=== PATIENT | female | born 1960 | race African-American/Black ===

== ENCOUNTER 2020-09-16 21:46 | Emergency (ER) | payer BC, OTHER ==
[~2020-09-16] VITALS: Ht 160 cm; Wt 84.8 kg
[2020-09-16 22:20] VITALS: BP 116/58
[2020-09-17 00:03] LABS: Basophils # (auto) 0.1 10 ^3/uL (0-0.2); Basophils % (auto) 1.5 % (0.0-2.0); Eosinophils # (auto) 0.1 10 ^3/uL (0-0.8); Eosinophils % (auto) 1.2 % (0.0-7.0); Hematocrit 36.2 % (36.0-46.0); Hemoglobin 11.8 g/dL (12.2-16.2); Lymphocytes # (auto) 1.7 10 ^3/uL (0.4-5.4); Lymphocytes % (auto) 28.5 % (10.0-50.0); Mean Corpuscular Hemoglobin 26.5 pg (28.0-32.0); Mean Corpuscular Hgb Conc. 32.8 g/dL (32.0-36.0); Monocytes # (auto) 0.3 10 ^3/uL (0-1.3); Monocytes % (auto) 5.4 % (0.0-12.0); Neutrophils # (auto) 3.8 10 ^3/uL (1.6-8.6); Neutrophils % (auto) 63.4 % (37.0-80.0); Nucleated Red Blood Cells % 0.2 %; Platelet Count (auto) 201 10^3/uL (140-450); Red Blood Cells 4.46 10^6/uL (4.0-5.20); Red Cell Distribution Width 17.1 % (11.8-14.3)
[2020-09-17 00:16] LABS: Albumin 3.5 g/dL (3.4-5.0); Calcium 8.5 mg/dL (8.5-10.1); Magnesium 2.1 mg/dL (1.6-2.6); Potassium 3.4 mmol/L (3.5-5.1)
[2020-09-17 00:23] LABS: BUN/Creatinine Ratio 13.1; Bilirubin, Total 1.2 mg/dL (0.2-1.0)
[2020-09-17 00:25] LABS: INR 1.05 (0.9-1.15)
[2020-09-17] MEDS ORDERED: ENOXAPARIN SOD 80 MG/0.8ML SYRINGE SC ONE (01:00)
[2020-09-17] MEDS ORDERED: POTASSIUM CHL 20 Meq TABLET PO ONE (01:30)
[2020-09-17] MEDS ORDERED: FUROSEMIDE 20 MG/2 ML VIAL IV SCH (06:00)
[2020-09-17] MEDS ORDERED: ENOXAPARIN SOD 40 MG/0.4 ML SYRINGE SC SCH (10:00)
[2020-09-17] MEDS ORDERED: FAMOTIDINE (10MG/ML) 2ML VL IV SCH (10:00)
== END 2020-09-17 04:07 | disposition left against medical advice (07) ==
LOC: EDBD 21:53 → ER 21:53
DX: I21.4 Non-ST elevation (NSTEMI) myocardial infarction (principal); R06.02 Shortness of breath; I50.9 Heart failure, unspecified; R77.8 Other specified abnormalities of plasma proteins; E87.6 Hypokalemia; R79.1 Abnormal coagulation profile
CPT/HCPCS: 36415; 71045; 80053; 83735; 83880; 84484; 85025; 85379; 85610; 85730; 93005

== ENCOUNTER 2025-07-23 03:35 | Inpatient (IN) | payer BC, MEDICARE ==
[2025-07-23] VITALS (11 sets, daily range): BP systolic 103–118; BP diastolic 35–82; PULSE 90–115; RESP 13–20; TEMP 97.4–97.7; O2SAT 90–100
[~2025-07-23] VITALS: Ht 167.6 cm; Wt 90.3 kg
--- NOTE | 2025-07-23 04:09 | ECG ---
[facility] Test Date: 2025-07-23 Test Time: 03:44:11 Pat Name: HALINA RODRIGEZ Department: [facility] ED Room: [address] [place] [address] Gender: F Associate Web Developer: ALIYA : 1960 Requested By: LINDA FIERRO Order Number: [id number] Reading MD: Paul Kirk Measurements Intervals [place] Rate: 104 P: 50 AL: 146 QRS: 10 QRSD: 120 T: 144 QT: 369 QTc: 486 Interpretive Statements Sinus tachycardia Probable left atrial enlargement LVH with secondary repolarization abnormality Borderline prolonged QT interval Electronically Signed On 07-25-2025 10:57:03 PST by Paul Kirk Please click the below link to view image of tracing.
[2025-07-23 04:44] LABS: Hematocrit 35.7 % (36.0-46.0); Hemoglobin 11.8 g/dL (12.2-16.2); Mean Corpuscular Hemoglobin 27.3 pg (28.0-32.0); Mean Corpuscular Volume 82.8 fL (80.0-100.0); Nucleated Red Blood Cells % 0.1 %
[2025-07-23 04:59] LABS: Alanine Aminotransferase 12 U/L (7-40); Albumin 4.4 g/dL (3.2-4.8); Alkaline Phosphatase 64 U/L (46-116); Anion Gap 9 (5-15); BUN/Creatinine Ratio 9.8 (10.0-20.0); Bilirubin, Total 0.9 mg/dL (0.2-1.0); Calcium 9.2 mg/dL (8.7-10.4); Carbon Dioxide 23 mmol/L (20-31); Potassium 4.0 mmol/L (3.5-5.1); Sodium 142 mmol/L (136-145); Total Protein 7.2 g/dL (5.7-8.2)
[2025-07-23 05:02] LABS: Blood Urea Nitrogen 9 mg/dL (9-23); Chloride 110 mmol/L (98-107); Glucose 136 mg/dL (74-106)
--- NOTE | 2025-07-23 05:16 | ED.PDOC ---
SOB-HPI HPI Comments HPI: 65-year-old female who came to ER via EMS with shortness of breath. Patient has a history of CHF and PE, used to be on Eliquis but was discontinued, but now currently on aspirin. Patient also used to be on oxygen, but has stopped taking it for the past year since she felt better. For the past week patient has been having shortness of breath, inhaler giving temporary relief. 2 days ago patient started experiencing left-sided chest pains stabbing. Last night, shortness of breath persisted so patient decided to use her oxygen again. Past Medical History: CHF, PE, hypertension, dyslipidemia, sleep apnea Surgical History: Hysterectomy Family History: Denies Personal and Social History: Denies HPI: Poor Historian. Ejection fraction 25% Past Medical History: Past Surgical History: REVIEW OF SYSTEMS: CONSTITUTIONAL: Denies acute: fever, diaphoresis, chills, generalized weakness. HEAD: Denies acute: headache, photophobia Eyes: Denies acute: Double vision, vision loss, eye pain, eye discharge. EARS: Denies acute: tinnitus, hearing loss, ear discharge, ear pain, THROAT: Denies acute: sore throat, swelling, difficulty swallowing , pain with swallowing, change in voice. NECK: Denies acute: neck pain, neck swelling, stiff neck. HEART: Denies acute : palpitations, LUNGS: Denies acute: , wheezing, cough, hemoptysis ABDOMEN: Denies acute: abdominal pain, Nausea, Vomiting, diarrhea, melena , hematemesis, hematochezia SKIN: Denies acute: rash, redness, lesions, itchiness. EXTREMITIES: Denies acute: calf pain, numbness, tingling, weakness, denies pain in extremity. Denies acute: Low back pain. Neuro: Denies acute: focal neurological deficit, motor or sensory focal neurological deficit, tremors, seizure like activity, confusion, dizziness, change in mental status, loss of bowel or bladder function, cauda equina like symptoms. : Denies acute: dysuria, hematuria, flank pain, increase in urinary frequency. PSYCH: Denies acute: hallucination, suicidal ideation, homicidal ideation. FEMALE: Denies acute: abnormal vaginal bleeding, foul odor, unusual discharge. PHYSICAL EXAM: General: -----mod--acute distress, awake and alert. Head: normocephalic, atraumatic. No raccoon's eyes, no tong sign. Neck: supple, trachea is midline, no swelling. Throat: Normal phonation. Eyes:, no erythema, no purulent discharge, no proptosis, no icterus. Heart: regular rate, regular rhythm, no significant murmur appreciated. Lungs: no apparent respiratory distress, Able to speak in full sentences. No wheezing, no rhonchi, no crackles. No stridors Clear to auscultation bilaterally. Abdomen: non tender to palpation, non distended, soft, no guarding, no rebound, + bowel sounds. Neuro: Awake, Alert, oriented to name, self, situation, follows commands GCS=15. Speech is normal. Skin: no petechia, no purpura, no cyanosis, non-pale, not jaundice. Lower extremities: --no - Pitting edema no deformity, no focal swelling, no calf TTP. Makes eye contact. moves all four extremities. Face: no apparent facial droop. ED COURSE: DISCLAIMER: This medical document was created using an electronic medical record system with voice recognition software and computerized dictation system. Although this document has been carefully reviewed, there might still be some phonetic and typographical errors. Occasional wrong-word or "sound-alike" substitutions may have occurred due to the inherent limitations of voice recognition software. These areas are purely typographical due to imperfections of the software programs and do not reflect any compromise in the patient's medical care. Please read the chart carefully and recognize, using context, where these substitutions have occurred. Chief Complaint: Shortness of Breath Time Seen by MD: 05:08 Reviewed notes: Nurses Notes, Allergies Information Source: Patient Mode of Arrival: EMS Past Medical History PAST MEDICAL HISTORY: CHF, High Lipids, HTN, PE Surgical History: Denies all surgeries [employer]ACHIN[employer] History: Denies all [employer] MACHINES Hx Family History Family History: Unknown Social History Smoker: Non-Smoker Alcohol: Denies ETOH Use Drugs: Denies Drug Use EKG EKG : Pulse Rate (adult): 104 Cardiac Rhythm: ST Hypertrophy: LAE Was a procedure done? Was a procedure done?: No Differential Dx Differential Diagnosis: Other (DDx include ACS, unstable angina, anxiety, PE, pneumothroax, neoplasm, cardiac ischemia, COPD, asthma, CHF, pleural effusion, tobacco abuse, pneumonia, hypoxia, hypercapnia, anemia., infection/sepsis., pulmonary edema. Asthma, Cardiac tamponade, infection.) X-Ray, Labs, Meds, VS Vital Signs Date Time Temp Pulse Resp B/P (MAP) Pulse Ox O2 Delivery O2 Flow Rate FiO2 07/23/25 05:26 104 07/23/25 03:48 97.1 103 18 133/88 98 97.1 07/23/25 03:44 104 Lab Test 07/23/25 05:42 07/23/25 04:30 Range/Units Troponin I High Sensitivity Pending 212 *H </=34 ng/L White Blood Count 4.5 4.4-10.8 10^3/uL Red Blood Count 4.30 4.0-5.20 10^6/uL Hemoglobin 11.8 L 12.2-16.2 g/dL Hematocrit 35.7 L 36.0-46.0 % Mean Corpuscular Volume 82.8 80.0-100.0 fL Mean Corpuscular Hemoglobin 27.3 L 28.0-32.0 pg Mean Corpuscular Hemoglobin Concent 33.0 32.0-36.0 g/dL Red Cell Distribution Width 14.6 H 11.8-14.3 % Platelet Count 195 140-450 10^3/uL Mean Platelet Volume 9.3 6.9-10.8 fL Neutrophils (%) (Auto) 65.2 37.0-80.0 % Lymphocytes (%) (Auto) 28.4 10.0-50.0 % Monocytes (%) (Auto) 3.2 0.0-12.0 % Eosinophils (%) (Auto) 2.5 0.0-7.0 % Basophils (%) (Auto) 0.7 0.0-2.0 % Neutrophils # (Auto) 2.9 1.6-8.6 10 ^3/uL Lymphocytes # (Auto) 1.3 0.4-5.4 10 ^3/uL Monocytes # (Auto) 0.1 0-1.3 10 ^3/uL Eosinophils # (Auto) 0.1 0-0.8 10 ^3/uL Basophils # (Auto) 0 0-0.2 10 ^3/uL Nucleated Red Blood Cells 0.1 % Sodium Level 142 136-145 mmol/L Potassium Level 4.0 3.5-5.1 mmol/L Chloride Level 110 H 98-107 mmol/L Carbon Dioxide Level 23 20-31 mmol/L Anion Gap 9 5-15 Blood Urea Nitrogen 9 9-23 mg/dL Creatinine 0.92 0.550-1.02 mg/dL Glomerular Filtration Rate Calc 70 >90 mL/min BUN/Creatinine Ratio 9.8 L 10.0-20.0 Serum Glucose 136 H 74-106 mg/dL Calcium Level 9.2 8.7-10.4 mg/dL Total Bilirubin 0.9 0.2-1.0 mg/dL Aspartate Amino Transferase (AST) 16 13-40 U/L Alanine Aminotransferase (ALT) 12 7-40 U/L Alkaline Phosphatase 64 46-116 U/L B-Type Natriuretic Peptide 521.49 0-100 pg/mL Total Protein 7.2 5.7-8.2 g/dL Albumin 4.4 3.2-4.8 g/dL Time of 1ST Reevaluation: 05:25 Reevaluation 1ST: Unchanged Patient Education/Counseling: Diagnosis, Treatment Family Education/Counseling: No Family Present Comments MDM: patient presented with the above HPI.-cardiac----workup was initiated. patient was found with the above mentioned diagnosis. the following medications were ordered: please refer to order lists of meds and tests obtained by myself Dr. Childress. Patient ED course and VS have been stabilized. Patient has been reassessed in the ED and remained in a stable condition. Pertinent incidental findings were discussed with the patient and/or family. Patient/family voices understanding and is agreeable with plan. Patient has been observed in the ED adequate length of time to insure improvement/stability. Escalation of care considered: Consideration of escalation to observation or admission Patient was ADMITTED to the medicine team for further evaluation and treatment of their presentation. All the reports of any imaging studies that were ordered by myself were reviewed by myself. SEPSIS Sepsis Screen Date sepsis recognized/suspect: Jul 23, 2025 Time Sepsis recognized/suspect: 035 Recent Procedure: No On Antibiotic Therapy: No Respiratory Rate >20: No Heart Rate >90: Yes Temp<36 C (96.8 F) or >38.3 C: No SBP <90 or MAP <65 mmHG: No New Acute Mental Status Change: No Is the patient on CPAP, BIPAP,: No Physician Orders Drawbench Operator Helper (07/23/25 ) Chest Portable (07/23/25 04:07) Troponin-I Hs (07/23/25 05:07) Troponin-I Hs (07/23/25 07:07) Electrocardigram (07/23/25 05:07) Electrocardigram (07/23/25 07:07) Vital Signs Date Time Temp Pulse Resp B/P (MAP) Pulse Ox O2 Delivery O2 Flow Rate FiO2 07/23/25 05:26 104 07/23/25 03:48 97.1 103 18 133/88 98 97.1 07/23/25 03:44 104 Laboratory Tests Test 07/23/25 04:30 White Blood Count 4.5 10^3/uL (4.4-10.8) Departure 1 Departure Time of Disposition: 05:17 Impression: Primary Impression: Non-STEMI (non-ST elevated myocardial infarction) Additional Impression: Dyspnea Disposition: ADMITTED INPATIENT Admit to: Tele Condition: Guarded Discharged With: Self Critical Care Note Critical Care Time?: Yes (45 min-critical care time only) Heart Score Heart Score: Heart Score Response (Comments) Value History Moderate Suspicious 1 EKG Repolarization Disturb 1 Age 45-64 1 Risk Factors >3 or Hx ASHD 2 Troponin 1-2 x's Normal limit 1 Total 6 I personally scribed for LINDA CHILDRESS DO ([email or web address]) on 07/23/25 at 05:15. Electronically submitted by Dontae Moore ([employer]). I personally scribed for LINDA CHILDRESS DO ([email or web address]) on 07/23/25 at 05:26. Electronically submitted by Dontae Moore ([employer]). LINDA CHILDRESS DO Jul 23, 2025 05:15
--- NOTE | 2025-07-23 06:30 | DVH ---
CHEST RADIOGRAPH Indication: cp/sob Technique: Single frontal view of the chest was obtained COMPARISON: None FINDINGS: Lines and Tubes: None Lungs: Clear Pleura: No effusion. No pneumothorax. Cardiomediastinal contours: Cardiomegaly. Bones: Unremarkable IMPRESSION: 1. Cardiomegaly.
[2025-07-23] MEDS: NITROGLYCERIN 0.4 MG SL TAB SL ONE (07:11)
[2025-07-23] MEDS: ASPirin-EC 325mg tab PO ONE (07:12)
[2025-07-23] MEDS: FUROSEMIDE 40 MG/4 ML VIAL IV ONE ×2 (07:13→14:00)
[2025-07-23] MEDS ORDERED: ONDANSETRON HCL 4 MG/2 ML VIAL IV PRN (11:00)
[2025-07-23] MEDS ORDERED: NITROGLYCERIN 0.4 MG SL TAB SL PRN (11:00)
[2025-07-23] MEDS ORDERED: ACETAMINOPHEN 325 MG TAB PO PRN (11:00)
[2025-07-23] MEDS ORDERED: MORPHINE SULFATE INJ 2 MG/ml SYRG IV PRN (11:00)
--- NOTE | 2025-07-23 11:14 | DVHHP2 ---
History of Present Illness Reason for Visit: Shortness of breath History of Present Illness Areli Friend is a 65-year-old female with past medical history of CHF, hypertension, PE, hyperlipidemia, and ME in 2017, who came to the hospital for shortness of breath. Patient states she has been experiencing shortness of breath for about 2 weeks. She was seen by her primary care porivder over a week ago and given antibiotics and breathing treatments. Her shortness of breath continued to worsen despite being compliant with her medications. She woke up with severe shortness of breath. Did a breathing treatment with no improvement and called EMS. Cardiovascular: CHF, HTN, hyperipidemia Pulmonary: Pulmonary embolus Past Surgical History: Hysterectomy Smoke: Quit (2017) ALCOHOL: rare Drugs: None Lives: with Family Domestic Violence: Neg Review of Systems Constitutional: No: Fever, Chills, Sweats, Weakness, Malaise, Other Eyes: No: Pain, Vision change, Conjunctivae inflammation, Eyelid inflammation, Other, Redness ENT: No: Ear pain, Ear discharge, Nose pain, Nose discharge, Nose congestion, Mouth pain, Mouth swelling, Throat pain, Throat swelling, Other Respiratory: Cough, Shortness of breath, SOB with excertion, Wheezing, Sputum; No: Dry, Hemoptysis, Pleuritic Pain, Wheezing, Other Cardiovascular: No: Chest Pain, Palpitations, Orthopnea, Paroxysmal Noc. Dyspnea, Edema, Lt Headedness, Other Gastrointestinal: No: Nausea, Vomiting, Abdominal Pain, Diarrhea, Constipation, Melena, Hematochezia, Other Genitourinary: No Dysuria, No Frequency, No Incontinence, No Hematuria, No Retention, No Other Musculoskeletal: No: other, neck pain, shoulder pain, arm pain, back pain, hand pain, leg pain, foot pain Skin: No: Rash, Lesions, Jaundice, Bruising, Other Neurological: No: Weakness, Numbness, Incoordination, Change in speech, Confusion, Seizures, Other Allergies: Coded Allergies: Penicillins (Verified Allergy, Unknown, 07/23/25) Sulfa Antibiotics (Verified Allergy, Unknown, 07/23/25) Exam Vital Signs Vital Signs Date Time Temp Pulse Resp B/P (MAP) Pulse Ox O2 Delivery O2 Flow Rate FiO2 07/23/25 09:11 97.8 96 18 126/60 (82) 100 97.8 07/23/25 07:18 Nasal Cannula* 2 28 General Appearance: Alert, Oriented X3, Cooperative, moderate distress HEENT: Atraumatic, PERRLA Respiratory: Other (Diminshed breath sounds, crackles, wet cough) Abdominal: Normal bowel sounds, Soft, No tenderness, No hepatospenomegaly Extremities: No clubbing, No cyanosis, No edema, Normal pulses, No tenderness/swelling Skin: No rashes, No breakdown, No significant lesion Neuro: Normal gait, Normal speech, Strength at 5/5 X4 ext, Normal tone Psych/Mental Status: Mental status NL, Mood NL Labs/Xrays Labs Test 07/23/25 07:44 07/23/25 04:30 Range/Units Troponin I High Sensitivity 188 *H </=34 ng/L White Blood Count 4.5 4.4-10.8 10^3/uL Red Blood Count 4.30 4.0-5.20 10^6/uL Hemoglobin 11.8 L 12.2-16.2 g/dL Hematocrit 35.7 L 36.0-46.0 % Mean Corpuscular Volume 82.8 80.0-100.0 fL Mean Corpuscular Hemoglobin 27.3 L 28.0-32.0 pg Mean Corpuscular Hemoglobin Concent 33.0 32.0-36.0 g/dL Red Cell Distribution Width 14.6 H 11.8-14.3 % Platelet Count 195 140-450 10^3/uL Mean Platelet Volume 9.3 6.9-10.8 fL Neutrophils (%) (Auto) 65.2 37.0-80.0 % Lymphocytes (%) (Auto) 28.4 10.0-50.0 % Monocytes (%) (Auto) 3.2 0.0-12.0 % Eosinophils (%) (Auto) 2.5 0.0-7.0 % Basophils (%) (Auto) 0.7 0.0-2.0 % Neutrophils # (Auto) 2.9 1.6-8.6 10 ^3/uL Lymphocytes # (Auto) 1.3 0.4-5.4 10 ^3/uL Monocytes # (Auto) 0.1 0-1.3 10 ^3/uL Eosinophils # (Auto) 0.1 0-0.8 10 ^3/uL Basophils # (Auto) 0 0-0.2 10 ^3/uL Nucleated Red Blood Cells 0.1 % Sodium Level 142 136-145 mmol/L Potassium Level 4.0 3.5-5.1 mmol/L Chloride Level 110 H 98-107 mmol/L Carbon Dioxide Level 23 20-31 mmol/L Anion Gap 9 5-15 Blood Urea Nitrogen 9 9-23 mg/dL Creatinine 0.92 0.550-1.02 mg/dL Glomerular Filtration Rate Calc 70 >90 mL/min BUN/Creatinine Ratio 9.8 L 10.0-20.0 Serum Glucose 136 H 74-106 mg/dL Calcium Level 9.2 8.7-10.4 mg/dL Total Bilirubin 0.9 0.2-1.0 mg/dL Aspartate Amino Transferase (AST) 16 13-40 U/L Alanine Aminotransferase (ALT) 12 7-40 U/L Alkaline Phosphatase 64 46-116 U/L B-Type Natriuretic Peptide 521.49 0-100 pg/mL Total Protein 7.2 5.7-8.2 g/dL Albumin 4.4 3.2-4.8 g/dL CHEST RADIOGRAPH FINDINGS: Lines and Tubes: None Lungs: Clear Pleura: No effusion. No pneumothorax. Cardiomediastinal contours: Cardiomegaly. Bones: Unremarkable IMPRESSION: 1. Cardiomegaly. SEPSIS Sepsis Screen Date sepsis recognized/suspect: Jul 23, 2025 Time Sepsis recognized/suspect: 353 Recent Procedure: No On Antibiotic Therapy: No Respiratory Rate >20: No Heart Rate >90: Yes Temp<36 C (96.8 F) or >38.3 C: No SBP <90 or MAP <65 mmHG: No New Acute Mental Status Change: No Is the patient on CPAP, BIPAP,: No Physician Orders Heading And Priming Operator (07/23/25 ) Chest Portable (07/23/25 04:07) Electrocardigram (07/23/25 05:07) Electrocardigram (07/23/25 07:07) Admit (07/23/25 10:59) Code Status (07/23/25 10:59) Hydrocodone-Acet 5/325mg Tab ([place] 5/32 (07/23/25 11:00) Ondansetron Hcl (Zofran) (07/23/25 11:00) Docusate Sodium Capsule (Colace Capsule) (07/23/25 11:00) Complete Blood Count (07/24/25 04:00) Comprehensive Metabolic Panel (07/24/25 04:00) Cardiac Diet-2gna,Lofat,Lochol (07/23/25 Lunch) Echo 2d Mode Cardiac Dop (07/23/25 10:59) Condition: Serious (07/23/25 10:59) Acetaminophen Tablet (Tylenol Tablet) (07/23/25 11:00) Nitroglycerin Sublingual (Ntrostat Subli (07/23/25 11:00) Morphine Sulfate Injection (07/23/25 11:00) Stat Ekg For Chest Pain (07/23/25 10:59) Notify Of Changes From Base (07/23/25 10:59) Baking Powder Mixer For 24 Hours (07/23/25 10:59) Emergency Dysrhythmia Protocol (07/23/25 10:59) Rhythm Strips Once Every Shift (07/23/25 10:59) Oxygen By Nasal Cannula (07/23/25 10:59) * Cardiology Consult (07/23/25 10:59) Vital Signs Date Time Temp Pulse Resp B/P (MAP) Pulse Ox O2 Delivery O2 Flow Rate FiO2 07/23/25 09:11 97.8 96 18 126/60 (82) 100 97.8 07/23/25 07:18 90 20 90 Nasal Cannula* 2 28 07/23/25 07:13 129/79 07/23/25 07:11 129/79 07/23/25 06:59 98.0 96 20 129/79 (96) 90 98.0 07/23/25 05:26 104 07/23/25 03:48 97.1 103 18 133/88 98 97.1 07/23/25 03:44 104 Laboratory Tests Test 07/23/25 04:30 White Blood Count 4.5 10^3/uL (4.4-10.8) Medications Medications Dose Ordered Sig/Jess Route Start Time Stop Time Status Last Admin Dose Admin Aspirin 325 mg ONCE ONCE PO 07/23/25 05:15 07/23/25 05:16 DC 07/23/25 07:12 325 MG Furosemide 40 mg ONCE ONCE IV 07/23/25 05:30 07/23/25 05:31 DC 07/23/25 07:13 40 MG Nitroglycerin 0.4 mg ONCE ONCE SL 07/23/25 05:15 07/23/25 05:16 DC 07/23/25 07:11 0.4 MG Assessment/Plan Assessment/Plan Assessment: Non-STEMI (non-ST elevated myocardial infarction), Acute hypoxic respiratory failure, CHF, Cardiomegaly, Hyperlipidemia, Hypertension, Muscle spasms, Plan: Admit to Tele, Cardiology consult, ECHO, Lipid panel, A1c, TSH, Breathing treatments, IV antibiotics, IV Steroids, Chest pain protocol, Supplemental oxygen as needed, Plan discussed with: Patient My Orders Orders - YOKASTA SANCHEZ Procedure Category Date Status Time Admit ADMIT 07/23/25 Transmitted 10:59 Code Status CODE 07/23/25 Transmitted 10:59 Hydrocodone-Acet PHA 07/23/25 Transmitted 5/325mg Tab ([place] 11:00 Ondansetron Hcl PHA 07/23/25 Transmitted (Zofran) 11:00 Docusate Sodium PHA 07/23/25 Transmitted Capsule (Colace 11:00 Complete Blood Count LAB 07/24/25 Verified 04:00 Comprehensive LAB 07/24/25 Verified Metabolic Panel 04:00 Cardiac DIET 07/23/25 Transmitted Diet-2gna,Lofat,Lochol Lunch Echo 2d Mode Cardiac US 07/23/25 Transmitted DOP 10:59 Condition: Serious GIBRAN 07/23/25 Transmitted 10:59 Acetaminophen Tablet PHA 07/23/25 Transmitted (Tylenol Tablet) 11:00 Nitroglycerin PHA 07/23/25 Transmitted Sublingual (Ntrostat 11:00 Morphine Sulfate PHA 07/23/25 Transmitted Injection 11:00 Stat Ekg For Chest [facility] 07/23/25 Transmitted Pain 10:59 Notify Md Of Changes [facility] 07/23/25 Transmitted From Base 10:59 Baking Powder Mixer For GIBRAN 07/23/25 Transmitted 24 Hours 10:59 Emergency Dysrhythmia GIBRAN 07/23/25 Transmitted Protocol 10:59 Rhythm Strips Once GIBRAN 07/23/25 Transmitted Every Shift 10:59 Oxygen By Nasal RT 07/23/25 Transmitted Cannula 10:59 * Cardiology Consult CONS 07/23/25 Transmitted 10:59 Date of Service: Jul 23, 2025 Billing Provider: YOKASTA SANCHEZ Common Visit Codes: [id number] INP/OBS CARE (HIGH) YOKASTA SANCHEZ Jul 23, 2025 11:14
[2025-07-23] MEDS: ALBUTEROL SULF 2.5 MG/0.5ML(0.5%) NEB SOLN NEB SCH (11:36)
[2025-07-23] MEDS: IPRATROPIUM BROM 0.5 MG/2.5ML INH SOL NEB SCH (11:36)
[2025-07-23] MEDS ORDERED: FURO40TA4 PO (11:59)
[2025-07-23] MEDS ORDERED: ASPI-325 PO (11:59)
[2025-07-23] MEDS ORDERED: ATOR40TA52 PO (11:59)
[2025-07-23] MEDS ORDERED: CARI-579 PO (11:59)
[2025-07-23 13:20] LABS: Triglycerides 128 mg/dL (< 150)
[2025-07-23 13:22] LABS: HDL Cholesterol 59 mg/dL (40-59)
[2025-07-23 13:57] LABS: Cholesterol 280 mg/dL (< 200)
[2025-07-23] MEDS: AZITHROMYCIN 500MG/ 250ML 250 ML IV ONE (14:00)
[2025-07-23] MEDS: CARISOPRODOL 350 MG TAB PO PRN (17:26)
[2025-07-23] MEDS: methylPREDNISolone SOD SUCC 40 MG/ML VL IV SCH (21:09)
[2025-07-23] MEDS: ATORVASTATIN 20 MG TAB PO SCH (21:09)
[2025-07-24] VITALS (13 sets, daily range): BP systolic 95–123; BP diastolic 49–86; PULSE 84–104; RESP 18–20; TEMP 97.5–98.7; O2SAT 91–100
[2025-07-24 04:44] LABS: Hemoglobin 11.6 g/dL (12.2-16.2)
[2025-07-24 04:48] LABS: Hematocrit 35.3 % (36.0-46.0); Mean Corpuscular Hemoglobin 27.3 pg (28.0-32.0); Mean Corpuscular Volume 82.9 fL (80.0-100.0); Nucleated Red Blood Cells % 0.1 %
[2025-07-24 04:59] LABS: Alanine Aminotransferase 11 U/L (7-40); Albumin 4.1 g/dL (3.2-4.8); Alkaline Phosphatase 61 U/L (46-116); Anion Gap 4 (5-15); BUN/Creatinine Ratio 12.5 (10.0-20.0); Bilirubin, Total 0.8 mg/dL (0.2-1.0); Blood Urea Nitrogen 12 mg/dL (9-23); Calcium 9.2 mg/dL (8.7-10.4); Carbon Dioxide 26 mmol/L (20-31); Potassium 4.4 mmol/L (3.5-5.1); Sodium 143 mmol/L (136-145); Total Protein 6.8 g/dL (5.7-8.2)
[2025-07-24 06:16] LABS: Chloride 113 mmol/L (98-107); Glucose 179 mg/dL (74-106)
[2025-07-24] MEDS: FUROSEMIDE 40 MG/4 ML VIAL IV SCH (09:06)
[2025-07-24] MEDS: ASPirin-EC 81 mg tab PO SCH (09:06)
[2025-07-24] MEDS ORDERED: FUROSEMIDE 40 MG TAB PO SCH (10:00)
[2025-07-24] MEDS: AZITHROMYCIN 500MG/ 250ML 250 ML IV SCH (10:24)
--- NOTE | 2025-07-24 10:43 | DVHPNRES ---
Progress Note Date Seen: Jul 24, 2025 Resident Creating Document: YUDI EUBANKS RESIDENT Subjective Review of Systems patient seen bedside still on 2L NC, baseline. improved subjective shortness of breath. Patient reports: No new complaints, Feels better Changes from previous H/P or p: No Changes Objective vital signs Vital Sign Date Time Temp Pulse Resp B/P (MAP) Pulse Ox O2 Delivery O2 Flow Rate FiO2 07/24/25 10:00 95 Nasal Cannula* 2 28 07/24/25 09:06 98/62 07/24/25 08:53 97.7 91 18 97.7 Total Intake and Output 07/23/25 07/23/25 07/24/25 15:00 23:00 07:00 Intake Total 105 ml 800 ml Balance 105 ml 800 ml medications Current Medications Medications Dose Ordered Sig/Jess Route Start Time Stop Time Status Last Admin Dose Admin Acetaminophen/ Hydrocodone Bitart 1 tab Q4HP PRN PO 07/23/25 11:00 Ondansetron HCl 4 mg Q4HP PRN IV 07/23/25 11:00 Docusate Sodium 100 mg BIDPRN PRN PO 07/23/25 11:00 Acetaminophen 650 mg Q6HP PRN PO 07/23/25 11:00 Nitroglycerin 0.4 mg Q5MINP PRN SL 07/23/25 11:00 Morphine Sulfate 2 mg Q30M PRN IV 07/23/25 11:00 Albuterol 2.5 mg Q6HWA NEB 07/23/25 12:00 07/24/25 07:52 2.5 MG Ipratropium Mather 0.5 mg Q6HWA [facility] 07/23/25 12:00 07/24/25 07:52 0.5 MG Aspirin 81 mg DAILY PO 07/24/25 10:00 07/24/25 09:06 81 MG Carisoprodol 350 mg TID PRN PO 07/23/25 12:00 07/23/25 17:26 350 MG Atorvastatin Calcium 40 mg HS PO 07/23/25 22:00 07/23/25 21:09 40 MG Methylprednisolone Sodium Succinate 40 mg BID IV 07/23/25 22:00 07/24/25 09:06 40 MG Ceftriaxone Sodium 50 ml @ 100 mls/hr DAILY@09 IV 07/24/25 09:00 07/24/25 09:07 100 MLS/HR Azithromycin 250 ml @ 125 mls/hr DAILY IV 07/24/25 10:00 07/24/25 10:24 125 MLS/HR Furosemide 40 mg DAILY IV 07/24/25 10:00 07/24/25 09:06 40 MG Examination: GENERAL:Normal, HEENT:Normal (jvp elevated. ), NECK:Normal, LUNGS:Abnormal (b/l crackles, rales +ve 2L nc ), CVS:Abnormal (jvp elevated. no significant pitting edema noted. b/l legs), ABDOMEN:Normal, MSK:Normal, SKIN:Normal, NEURO:Normal laboratory and microbiology Laboratory Tests 07/24/25 03:28 Test 07/24/25 03:28 Range/Units Serum Glucose 179 H 74-106 mg/dL Labs and/or images reviewed: Labs reviewed by me, Image(s) reviewed by me Problem List/Assessment/Plan Problem List/Assessment/Plan Ms. Friend, a 65-year-old female with a complex cardiac history including prior smoking, COPD, HFrEF, ischemic cardiomyopathy, CAD (2021 coronary angiogram showing chronic total occlusion of mid RCA and mild LCX disease), prior GA, CVA, VIPUL noncompliance on CPAP, chronic hypoxia on 2L NC RTC, and resolved PE (no longer on anticoagulation) presents with progressive shortness of breath. She reports adherence to diuretics but has previously discontinued other cardiac medications. She has not seen a wool hat hydraulicker in approximately a year after switching providers and missing a scheduled appointment. On ED presentation, she was found to have cardiomegaly on CXR, elevated BNP (521), and mildly elevated troponins trending down (212 ? 195 ? 188). EKG showed sinus tachycardia (HR 104) with LVH but no acute ST-T changes. She denies active chest pain or palpitations. Assessment and Plan: #Possible community-acquired pneumonia gram Positive, Atypical: Continue IV antibiotics, azithromycin and ceftriaxone, check MRSA , check for QT see, if prolonged change to doxycycline. #Possible COPD exacerbation: treatment in progress, likely underlying CAP, methylprednisolone IV changed to oral prednisone 40 mg daily x 5 more days. #Known COPD: at home formoterol and ipratropium bromide with albuterol rescue inhaler, in hospital treatment to continue #Acute on chronic CHF: iv lasix to continue for one more day, CHF bundle. #Known HFrEF, (25% EF): New echo LVEF 20%, Home GDM T spironolactone 25 mg daily, and oral Lasix 40 mg daily compliance questionable, hypothyroidism ruled out moderately elevated 521 of BNP , patient might get a benefits from AICD versus LifeVest. continue iv lasix 40 daily for now. check Mg, ivabradine added. #CAD with known GA in 2016, 2021 showing FUR MIXER mid RCA mild 40% LCX disease #type 2 Non-STEMI, denies active chest pain: Cardiology on board, appreciate input. likely due to underlying stress due to hypotension: With known underlying CAD, continue telemetry, aspirin atorvastatin to continue. previous wool hat hydraulicker Dr. Kenney #Ischemic cardiomyopathy with known HFrEF 20-25% ejection fraction: NYHA III oxygen dependent, given lower blood pressure, less room for GDMT> #Mild Hypotensive: MAP to keep over 65, 98/62 this morning, patient asymptomatic, UA unremarkable, CXR unremarkable for CRP, check lactate, trend if high-risk for cardiogenic shock , close follow up with the Cardiology, underlying infection could be contributing. #Acute on Chronic hypoxic respiratory failure: back to 2 L nasal cannula oxygen, baseline, At home patient has oxygen concentrated, round the clock 2 L of nasal cannula oxygen, target SpO2 around 92% given known COPD case. Wean oxygen as tolerated, ruled out COVID influenza. #Normocytic anemia, H&H stable: am labs 11.8, Check for iron panel: if ferritin less than 100, IV iron infusion we will helping HFrEF as per IRONMAN trial. #Well-controlled diabetic, HbA1c 6.7: target blood glucose in-hospital 140-180 with SSI #Dyslipidemia: with TG 128, cholesterol 280, LDL 196, continue atorvastatin 40 mg daily #Cardiomegaly likely LVH due to prior hypertensive heart disease: LVH with IVCD and secondary repolarization abnormality #Moderate-sized hiatal hernia, GERD: Noted previously in EGD, continue Protonix, patient has symptoms, lifestyle modification, outpatient follow up with the GI as needed. #Previous surgical history of hysterectomy, healthy scars noted: abdomen examination unremarkable. #Constipation: as needed docusate. #Prior history of smoking, 20+ pack-year smoking history #Prior history of DVT/PE: presented with tachycardia hypoxia, renal function acceptable, completed previous anticoagulation. clinically #Chronic back pain, Muscle spasms: well controlled and ambulatory at baseline. continue home medications. #Likely CKD stage 2: Avoid nephrotoxins, gentle oral hydration, daily BNP #Obesity grade 1: BMI 31.5, high-risk for progression of HFpEF, weight loss counseling done. #Known history of VIPUL: patient did not tolerate home CPAP, Continue CPAP at night if tolerated. #Poor medication compliance /poor medical adherence #Borderline Prolonged QTC ~480: MG> 2, K>2, telemetry, changed azithromycin to doxycycline, avoid other QTC prolonging drugs. #Grade 1 obesity BMI 31.5 PUD prophylaxis: protonix 40mg DVT prophylaxis: lovenox Barriers to discharge: Medical diagnosis and management in progress. Patient lives with brother/ family. Independent for ADL. At discharge will need oxygen to transport. PCP: Patient has a established PCP at [facility], patient is adamant to change the PCP. High-risk of readmission, I will advise for discharge Clinic follow up. Close follow up needed outpatient for advanced heart failure with Cardiology. Specialist Relevant To Admission: Cardiology. Case discussed with Dr Alejo Code Status: Full Code. Discussion needed total 27 minutes bedside. Plan discussed with: Patient, Other (primary team. ) My Orders My Orders Orders - YUDI EUBANKS RESIDENT Procedure Category Date Status Time Stool Occult Blood LAB 07/24/25 Logged 10:31 Iron Panel LAB 07/24/25 In Process 10:31 Ferritin LAB 07/24/25 In Process 10:31 Covid19 Antigen Dayanna LAB 07/24/25 Logged Rapid Influenza A&B LAB 07/24/25 Logged 10:31 Respiratory Culture LUIS 07/24/25 Logged W/ Gs 10:31 Mrsa Screen LUIS 07/24/25 Logged 10:31 Urinalysis LAB 07/24/25 Logged 10:31 Enoxaparin Sodium PHA 07/25/25 Logged (Lovenox) 10:00 Enoxaparin Sodium PHA 07/24/25 In Process (Lovenox) 10:45 Pantoprazole PHA 07/25/25 In Process (Protonix) 10:00 Pantoprazole PHA 07/24/25 In Process (Protonix) 10:45 Pt Request For Service PT 07/24/25 Logged 10:31 Date of Service: Jul 24, 2025 Billing Provider: MUSA ALEJO MD Common Visit Codes: [id number] INP/OBS CARE(HIGH) Secondary Visit Codes: [id number] CARE PLAN 30 MINUTES YUDI EUBANKS Jul 24, 2025 10:43 MUSA ALEJO MD Jul 24, 2025 15:44
[2025-07-24 11:08] LABS: Total Iron Binding Capacity 280.0 ug/dL (250-425)
[2025-07-24 11:10] LABS: Iron 35.0 ug/dL (50-170)
[2025-07-24] MEDS: PANTOPRAZOLE 40 MG/10 ML VIAL INJ IV ONE (12:04)
[2025-07-24] MEDS: ENOXAPARIN SOD 40 MG/0.4 ML SYRINGE SC ONE (12:05)
[2025-07-24 12:11] LABS: Urine Protein, UAD Negative (Negative)
[2025-07-24 12:59] LABS: COVID19 ANTIGEN SOFIA FIA NEGATIVE (NEGATIVE)
--- NOTE | 2025-07-24 13:32 | DVHSR ---
APPROVED REPORT EXAM: Two-dimensional and M-mode echocardiogram with Doppler and color Doppler. Blood Pressure: 96/60 mmHg INDICATION NSTEMI RISK FACTORS Height: 5'6", Weight: 195 DIMENSIONS LVDd 7.0 (3.8-5.7cm) LA (2D) 4.9 (1.9-4.0cm) Aortic Root 3.4 (2.0-3.7cm) LVDs 6.8 (2.5-4.0cm) LA (MM) (1.9-4.0cm) Aortic Cusp Exc 1.6 (1.5-2.0cm) EF (%) 10.0 (55-70%) Rt. Atrium 4.3 (1.9-4.0cm) Asc. Aorta cm IVSd 1.3 (0.7-1.1cm) RV (D) (1.8-2.4cm) PWd 1.2 (0.7-1.1cm) Mitral Valve Mitral Mitral Stenosis E wave 1.34m/s MV Mean GR. mmHg A wave 1.32m/s MV Peak GR. mmHg E/A ratio 1.0 2D MVA cm2 DECEL Time 138ms PRESS 1/2 Time ms Aortic Valve Aortic Valve Aortic Stenosis V1 0.83m/s AO Mean GR. 3mmHg V2 1.35m/s AO Peak GR. 7mmHg LVOT Diameter 2.0 (1.8-2.4cm) Doppler HIRAM 1.93cm2 Pulmonic Valve V2 0.86m/s Tricuspid Valve TR Velocity 2.63m/s RVSP 31mmHg Conclusion LVH LVE JUHI LAE EF <20% SPONTANEOUS CONTRAST SEEN , RISK FOR EMBOLIC EVENT
--- NOTE | 2025-07-24 13:58 | DVHINCON2 ---
Date Seen: Jul 24, 2025 Referring Physician Zaida Reason for Consultation CHF, Positive troponins History of Present Illness 65-year-old female with PMH for HFrEF, cardiomyopathy, CAD with coronary angio in 2021 showing ENGINE LATHE TENDER mid RCA mild 40% LCX disease, PE no longer on anticoagulation therapy, DC, CVA presents to the hospital with worsening shortness of breath. Patient states she has been compliant with the diuretic though has stopped all her heart medication in the past. Previously Following up with Dr. 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 Patient states she had an appointment coming up though missed the appointment by mistake. Upon presentation in the ER patient found to have CXR showing cardiomegaly, mildly elevated troponins trending 212, 195, 188. BNP 521. Denies chest pain, palpitations. EKG reviewed and shows sinus tachycardia at 104 beats per minute, LVH. No acute ST and T-wave abnormality. Past Medical History As stated above Past Surgical History As stated above Family History: Cerebrovascular accident (CVA) G8 MOTHER, Onset:50's - 60 G8 FATHER, Onset:40's - 50 Social History Denies alcohol tobacco or illicit drug use Allergies: Coded Allergies: Penicillins (Verified Allergy, Unknown, 07/23/25) Sulfa Antibiotics (Verified Allergy, Unknown, 07/23/25) Home Meds Reported Medications Aspirin (Aspirin Low Dose) 81 Mg Tab, 1 TAB PO DAILY 07/23/25 Furosemide (Furosemide) 40 Mg Tab, 1 TAB PO DAILY 07/23/25 Atorvastatin Calcium (ATORVASTATIN CALCIUM) 40 Mg Tab, 40 MG PO HS 07/23/25 Carisoprodol (Carisoprodol) 350 Mg Tab, 1 TAB PO TID PRN 07/23/25 Current Medications Current Medications Medications (Trade) Dose Ordered Sig/Jess Route PRN Reason Start Time Stop Time Status Last Admin Aspirin (Ecotrin Enteric Coated Tablet) 81 mg DAILY PO 07/24/25 10:00 07/24/25 09:06 Furosemide (Lasix Tablet) 40 mg DAILY PO 07/24/25 10:00 07/23/25 14:02 DC Atorvastatin Calcium (Lipitor) 40 mg HS PO 07/23/25 22:00 07/23/25 21:09 Methylprednisolone Sodium Succinate (Solu Medrol) 40 mg BID IV 07/23/25 22:00 07/24/25 09:06 Ceftriaxone Sodium 50 ml @ 100 mls/hr DAILY@09 IV 07/24/25 09:00 07/24/25 09:07 Azithromycin 250 ml @ 125 mls/hr DAILY IV 07/24/25 10:00 07/24/25 10:24 Furosemide (Lasix Injection) 40 mg DAILY IV 07/24/25 10:00 07/24/25 09:06 Enoxaparin Sodium (Lovenox) 40 mg DAILY SC 07/25/25 10:00 Pantoprazole Sodium (Protonix) 40 mg DAILY IV 07/25/25 10:00 Review of Systems Constitutional: No: Fever, Chills, Sweats, Weakness, Malaise, Other Eyes: No: Pain, Vision change, Conjunctivae inflammation, Eyelid inflammation, Other, Redness ENT: No: Ear pain, Ear discharge, Nose pain, Nose discharge, Nose congestion, Mouth pain, Mouth swelling, Throat pain, Throat swelling, Other Respiratory: No: Cough, Dry, Shortness of breath, SOB with exertion, Wheezing, Hemoptysis, Pleuritic Pain, Sputum, Wheezing, Other Cardiovascular: ; No: Chest Pain Palpitations, Orthopnea, Paroxysmal Noc. Dyspnea, mild Edema, Lt Headedness, Other Gastrointestinal: No: Nausea, Vomiting, Abdominal Pain, Diarrhea, Constipation, Melena, Hematochezia, Other Genitourinary: No Dysuria, No Frequency, No Incontinence, No Hematuria, No Rete ntion, No Other Musculoskeletal: neck pain; No: other, shoulder pain, arm pain, back pain, hand pain, leg pain, foot pain Skin: No: Rash, Lesions, Jaundice, Bruising, Other Neurological: Other (Dizziness, headache.); No: Weakness, Numbness, Incoordination, Change in speech, Confusion, Seizures Vital Signs Vital Signs Date Time Temp Pulse Resp B/P (MAP) Pulse Ox O2 Delivery O2 Flow Rate FiO2 07/24/25 12:30 97.9 93 18 97/49 (65) 96 97.9 07/24/25 10:00 Nasal Cannula* 2 28 Physical Exam General appearance: Patient is well-developed, well-nourished, in no acute distress. HEENT: Exam shows: Normocephalic, atraumatic, PERRLA, EOMI Neck: Supple, no bruits Chest: Equal chest excursion bilaterally. Breath sounds normal-no rales or wheezes. Heart: Rhythm: Regular rate; no murmur or gallop Abdomen: Exam shows: Soft, nontender, nondistended Musculoskeletal: No clubbing, no cyanosis, no lower extremity edema Dermatology: Skin warm, moist. Neurological: Exam shows: Alert and oriented x4, normal speech Available prior records, labs, EKG, rhythm strips reviewed and interpreted Labs/Diagnostic Data Labs Test 07/24/25 11:51 07/24/25 11:30 07/24/25 03:28 07/23/25 14:11 Range/Units Influenza Type A Antigen Negative Negative Influenza Type B Antigen Negative Negative SARS-CoV-2 Antigen (Rapid) Negative NEGATIVE Urine Color Colorless Yellow Urine Clarity Clear Clear Urine pH 5.0 5.0-9.0 Urine Specific [place] 1.006 1.001-1.035 Urine Protein Negative Negative Urine Ketones Negative Negative Urine Blood Negative Negative /uL Urine Nitrite Negative Negative Urine Bilirubin Negative Negative Urine Urobilinogen Normal Negative mg/dL Urine Leukocyte Esterase Negative Negative /uL Urine RBC None seen 0 - 4 /hpf Urine Microscopic WBC 0-5 /HPF Urine Squamous Epithelial Cells Few <5 /hpf Urine Bacteria None seen None Seen /hpf Urine Glucose 3+ H Normal mg/dL White Blood Count 5.0 4.4-10.8 10^3/uL Red Blood Count 4.26 4.0-5.20 10^6/uL Hemoglobin 11.6 L 12.2-16.2 g/dL Hematocrit 35.3 L 36.0-46.0 % Mean Corpuscular Volume 82.9 80.0-100.0 fL Mean Corpuscular Hemoglobin 27.3 L 28.0-32.0 pg Mean Corpuscular Hemoglobin Concent 33.0 32.0-36.0 g/dL Red Cell Distribution Width 14.9 H 11.8-14.3 % Platelet Count 190 140-450 10^3/uL Mean Platelet Volume 9.8 6.9-10.8 fL Neutrophils (%) (Auto) 89.8 H 37.0-80.0 % Lymphocytes (%) (Auto) 9.0 L 10.0-50.0 % Monocytes (%) (Auto) 0.9 0.0-12.0 % Eosinophils (%) (Auto) 0.1 0.0-7.0 % Basophils (%) (Auto) 0.2 0.0-2.0 % Neutrophils # (Auto) 4.5 1.6-8.6 10 ^3/uL Lymphocytes # (Auto) 0.4 0.4-5.4 10 ^3/uL Monocytes # (Auto) 0 0-1.3 10 ^3/uL Eosinophils # (Auto) 0 0-0.8 10 ^3/uL Basophils # (Auto) 0 0-0.2 10 ^3/uL Nucleated Red Blood Cells 0.1 % Sodium Level 143 136-145 mmol/L Potassium Level 4.4 3.5-5.1 mmol/L Chloride Level 113 H 98-107 mmol/L Carbon Dioxide Level 26 20-31 mmol/L Anion Gap 4 L 5-15 Blood Urea Nitrogen 12 9-23 mg/dL Creatinine 0.96 0.550-1.02 mg/dL Glomerular Filtration Rate Calc 66 >90 mL/min BUN/Creatinine Ratio 12.5 10.0-20.0 Serum Glucose 179 H 74-106 mg/dL Calcium Level 9.2 8.7-10.4 mg/dL Iron Level 35 L 50-170 ug/dL Total Iron Binding Capacity 280 250-425 ug/dL Percent Iron Saturation 12.5 L 15-50 % Ferritin 83.1 10-291 ng/mL Total Bilirubin 0.8 0.2-1.0 mg/dL Aspartate Amino Transferase (AST) 18 13-40 U/L Alanine Aminotransferase (ALT) 11 7-40 U/L Alkaline Phosphatase 61 46-116 U/L Total Protein 6.8 5.7-8.2 g/dL Albumin 4.1 3.2-4.8 g/dL Hemoglobin A1c 6.7 H <5.7 % A1C Test 07/23/25 07:44 07/23/25 04:30 Range/Units Troponin I High Sensitivity 188 *H </=34 ng/L Triglycerides Level 128 < 150 mg/dL Cholesterol Level 280 H < 200 mg/dL LDL Cholesterol 196 H < 100 mg/dL HDL Cholesterol 59 40-59 mg/dL Thyroid Stimulating Hormone (TSH) 2.11 0.55-4.78 uIU/mL B-Type Natriuretic Peptide 521.49 0-100 pg/mL Assessment * NSTEMI type 2 - patient with known CAD. Continue aspirin and statin. Denies chest pain. No acute ST and T-wave abnormalities on EKG. * Acute on chronic HFrEF - continue diuresis 40 mg Lasix IV daily. Aldactone 12.5 mg p.o. daily recommended if BP tolerates.. * Cardiomyopathy - unable to tolerate GDMT due to labile blood pressures. We will start Ivabradine 2.5 twice daily. Follow up echo showing EF 20% spontaneous contrast seen on exam indicating risk for embolic event. Patient will benefit from low-dose anticoagulation therapy, we will start on Eliquis 2.5 mg p.o. twice daily. Recommend close outpatient cardiology follow up for possible AICD. * CAD - continue on low-dose Eliquis and statin on DC. * Acute hypoxic respiratory failure , suspected pneumonia- on IV antibiotics. Management per primary team. Case Discussed with Dr Soto. Given noncompliant with medication and outpatient follow up. Continue medical management at this time. EF 20% with spontaneous contrast seen, we will started on low-dose Eliquis 2.5 mg twice daily due to risk for embolic event. Strongly advised outpatient cardiology follow up. Critical care, time spent: 40 minutes This medical document was created using an electronic medical record system with voice recognition software and computerized dictation system. Although this document has been carefully reviewed, there might still be some phonetic and typographical errors. Occasional wrong-word or ``sound-alike substitutions may have occurred due to the inherent limitations of voice recognition software. These areas are purely typographical due to imperfections of the software programs and do not reflect any compromise in the patient's medical care. Please read the chart carefully and recognize, using context, where these substitutions have occurred. Thank you for allowing me to participate in the management of this patient. The treatment plan was discussed with and agreed upon by patient/family including requesting consultants and ordering of imaging/procedures. Plan discussed with: Patient NYHA Physical activity limitations: Class3(Marked) ordinary Date of Service: Jul 24, 2025 Billing Provider: FAVIO CERON Cardiology Common Codes: [id number] INP/OBS CARE (High), [id number] CARE 30-74 MIN FAVIO CERON Jul 24, 2025 13:58
[2025-07-24] MEDS: DOXYCYCLINE 100MG/100ML 100 ML IV SCH (16:15)
[2025-07-24] MEDS: DOCUSATE SOD 100 MG CAP PO PRN (16:17)
[2025-07-24] MEDS: IRON SUCROSE COMPLEX 110 ML IV SCH (18:44)
[2025-07-24] MEDS: HYDROcodone-ACET 5/325MG TAB PO PRN (18:55)
[2025-07-24 19:10] LABS: Lactic Acid w/Reflex 3.0 mmol/L (0.4-2.0)
[2025-07-24] MEDS: SODIUM CHLORIDE 0.9% 250 ML IV ONE (20:26)
[2025-07-24] MEDS: FUROSEMIDE 40 MG/4 ML VIAL IV ONE (20:30)
[2025-07-24] MEDS: IVABRADINE 5 MG TAB PO SCH (22:12)
[2025-07-25] VITALS (12 sets, daily range): BP systolic 90–105; BP diastolic 50–67; PULSE 83–104; RESP 14–18; TEMP 97.1–98.3; O2SAT 93–99
[2025-07-25] MEDS: PANTOPRAZOLE 40 MG/10 ML VIAL INJ IV SCH (09:19)
[2025-07-25] MEDS: predniSONE 20 MG TAB PO SCH (09:22)
[2025-07-25] MEDS: ENOXAPARIN SOD 40 MG/0.4 ML SYRINGE SC SCH (09:22)
--- NOTE | 2025-07-25 13:44 | DVHPN2 ---
Progress Note - Dictate Date Seen: Jul 25, 2025 Medical Necessity Reason Pt with a Central, PICC or Fol: No Subjective PT WITH ISCHEMIC CM EF <20% SPONTANEOUS CONTRAST SINCE IN LV ON 2 ED ECHO ANTI COAGULATE ELEVATED TROPONIN C/W SUBENDOCARDIAL INJURY SECONDARY TO HYPOPERFUSION LHC OCCLUDED RCA NO WITH ACUTE DECOMPENSATION OF HFrEF vital signs Vital Sign Date Time Temp Pulse Resp B/P (MAP) Pulse Ox O2 Delivery O2 Flow Rate FiO2 07/25/25 12:53 97.9 89 17 90/50 (63) 97 97.9 07/25/25 06:10 Room Air* 0 21 Total Intake and Output 07/24/25 07/24/25 07/25/25 15:00 23:00 07:00 Intake Total 420 ml 550 ml 900 ml Output Total 500 ml Balance -80 ml 550 ml 900 ml medications Current Medications Medications Dose Ordered Sig/Jess Route Start Time Stop Time Status Last Admin Dose Admin Acetaminophen/ Hydrocodone Bitart 1 tab Q4HP PRN PO 07/23/25 11:00 07/24/25 18:55 1 TAB Ondansetron HCl 4 mg Q4HP PRN IV 07/23/25 11:00 Docusate Sodium 100 mg BIDPRN PRN PO 07/23/25 11:00 07/24/25 16:17 100 MG Acetaminophen 650 mg Q6HP PRN PO 07/23/25 11:00 Nitroglycerin 0.4 mg Q5MINP PRN SL 07/23/25 11:00 Morphine Sulfate 2 mg Q30M PRN IV 07/23/25 11:00 Aspirin 81 mg DAILY PO 07/24/25 10:00 07/25/25 09:22 81 MG Carisoprodol 350 mg TID PRN PO 07/23/25 12:00 07/23/25 17:26 350 MG Atorvastatin Calcium 40 mg HS PO 07/23/25 22:00 07/24/25 21:04 40 MG Ceftriaxone Sodium 50 ml @ 100 mls/hr DAILY@09 IV 07/24/25 09:00 07/25/25 09:19 100 MLS/HR Furosemide 40 mg DAILY IV 07/24/25 10:00 07/25/25 09:21 40 MG Enoxaparin Sodium 40 mg DAILY SC 07/25/25 10:00 07/25/25 09:22 40 MG Pantoprazole Sodium 40 mg DAILY IV 07/25/25 10:00 07/25/25 09:19 40 MG Ivabradine 2.5 mg BID PO 07/24/25 22:00 07/25/25 09:23 2.5 MG Doxycycline Hyclate 100 ml @ 50 mls/hr Q12H IV 07/24/25 16:15 07/25/25 04:24 50 MLS/HR Iron Sucrose 110 ml @ 110 mls/hr DAILY@1200 IV 07/24/25 16:45 07/28/25 12:59 07/25/25 12:12 110 MLS/HR Prednisone 40 mg DAILY PO 07/25/25 10:00 07/25/25 09:22 40 MG laboratory and microbiology Laboratory Tests 07/24/25 03:28 Test 07/24/25 03:28 Range/Units Serum Glucose 179 H 74-106 mg/dL Problem List SCHEMIC CM EF <20% SPONTANEOUS CONTRAST SINCE IN LV ON 2 ED ECHO ANTI COAGULATE ELEVATED TROPONIN C/W SUBENDOCARDIAL INJURY SECONDARY TO HYPOPERFUSION LHC OCCLUDED RCA NO WITH ACUTE DECOMPENSATION OF HFrEF Assessment/Plan DIURESIS CONSIDER CARDIOLITE STRESS OUTPT Plan discussed with: Patient Critical Care Time(min): 35 LIANA MUNGUIA MD Jul 25, 2025 13:44
--- NOTE | 2025-07-25 17:59 | DVHPN2 ---
Reviewed: H&P Changes from previous H/P or p: No Changes General: Per HPI Eyes: No Pain, No Vision change, No Conjunctivae inflammation, No Eyelid inflammation, No Other, No Redness ENT: No Ear pain, No Ear discharge, No Nose pain, No Nose discharge, No Nose congestion, No Mouth pain, No Mouth swelling, No Throat pain, No Throat swelling, No Other Cardiovascular: No Chest Pain, No Palpitations, No Orthopnea, No Paroxysmal Noc. Dyspnea, No Edema, No Lt Headedness, No Other Respiratory: Cough; No Dry; Shortness of breath, SOB with excertion, Wheezing; No Hemoptysis, No Pleuritic Pain; Sputum; No Other Gastrointestinal: No Nausea, No Vomiting, No Abdominal Pain, No Diarrhea, No Constipation, No Melena, No Hematochezia, No Other Genitourinary: No Dysuria, No Frequency, No Incontinence, No Hematuria, No Retention, No Other Musculoskeletal: No other, No neck pain, No shoulder pain, No arm pain, No back pain, No hand pain, No leg pain, No foot pain Skin: No Rash, No Lesions, No Jaundice, No Bruising, No Other Objective Vitals Vital Signs Date Time Temp Pulse Resp B/P (MAP) Pulse Ox O2 Delivery O2 Flow Rate FiO2 07/25/25 17:00 97.1 83 16 98/55 (69) 95 97.1 07/25/25 10:00 Nasal Cannula 2.0 07/25/25 10:00 28 Intake/Output Intake and Output 07/25/25 07:00 Intake Total 1870 ml Output Total 500 ml Balance 1370 ml Intake Oral 1470 ml IV Total 400 ml Output Urine Total 500 ml # Voids 9 Exam GENERAL:Normal, HEENT:Normal (jvp elevated. ), NECK:Normal, LUNGS:Abnormal (b/l crackles, rales +ve 2L nc ), CVS:Abnormal (jvp elevated. no significant pitting edema noted. b/l legs), ABDOMEN:Normal, MSK:Normal, SKIN:Normal, NEURO:Normal Medications Current Medications Medications Dose Ordered Sig/Jess Route Start Time Stop Time Status Last Admin Dose Admin Acetaminophen/ Hydrocodone Bitart 1 tab Q4HP PRN PO 07/23/25 11:00 07/24/25 18:55 1 TAB Ondansetron HCl 4 mg Q4HP PRN IV 07/23/25 11:00 Docusate Sodium 100 mg BIDPRN PRN PO 07/23/25 11:00 07/24/25 16:17 100 MG Acetaminophen 650 mg Q6HP PRN PO 07/23/25 11:00 Nitroglycerin 0.4 mg Q5MINP PRN SL 07/23/25 11:00 Morphine Sulfate 2 mg Q30M PRN IV 07/23/25 11:00 Aspirin 81 mg DAILY PO 07/24/25 10:00 07/25/25 09:22 81 MG Carisoprodol 350 mg TID PRN PO 07/23/25 12:00 07/23/25 17:26 350 MG Atorvastatin Calcium 40 mg HS PO 07/23/25 22:00 07/24/25 21:04 40 MG Ceftriaxone Sodium 50 ml @ 100 mls/hr DAILY@09 IV 07/24/25 09:00 07/25/25 09:19 100 MLS/HR Furosemide 40 mg DAILY IV 07/24/25 10:00 07/25/25 09:21 40 MG Enoxaparin Sodium 40 mg DAILY SC 07/25/25 10:00 07/25/25 09:22 40 MG Pantoprazole Sodium 40 mg DAILY IV 07/25/25 10:00 07/25/25 09:19 40 MG Ivabradine 2.5 mg BID PO 07/24/25 22:00 07/25/25 09:23 2.5 MG Doxycycline Hyclate 100 ml @ 50 mls/hr Q12H IV 07/24/25 16:15 07/25/25 16:06 50 MLS/HR Iron Sucrose 110 ml @ 110 mls/hr DAILY@1200 IV 07/24/25 16:45 07/28/25 12:59 07/25/25 12:12 110 MLS/HR Prednisone 40 mg DAILY PO 07/25/25 10:00 07/25/25 09:22 40 MG Laboratory Results Laboratory Tests 07/24/25 03:28 Chemistry Test 07/25/25 12:05 Magnesium Level 1.9 mg/dL (1.6-2.6) Urinalysis Test 07/24/25 11:30 Urine Color Colorless (Yellow) Urine Clarity Clear (Clear) Urine pH 5.0 (5.0-9.0) Urine Specific [place] 1.006 (1.001-1.035) Urine Protein Negative (Negative) Urine Ketones Negative (Negative) Urine Blood Negative /uL (Negative) Urine Nitrite Negative (Negative) Urine Bilirubin Negative (Negative) Urine Urobilinogen Normal mg/dL (Negative) Urine Leukocyte Esterase Negative /uL (Negative) Urine RBC None seen /hpf (0 - 4) Urine Microscopic WBC /HPF (0-5) Urine Squamous Epithelial Cells Few /hpf (<5) Urine Bacteria None seen /hpf (None Seen) Urine Glucose 3+ mg/dL (Normal) H Microbiology Microbiology Date/Time Source Procedure Growth Status 07/24/25 11:30 Nose MRSA Screen - Final Complete Labs and/or images reviewed: Labs reviewed by me, Image(s) reviewed by me Assessment/Plan Assessment/Plan Ms. Friend, a 65-year-old female with a complex cardiac history including prior smoking, COPD, HFrEF, ischemic cardiomyopathy, CAD (2021 coronary angiogram showing chronic total occlusion of mid RCA and mild LCX disease), prior SD, CVA, VIPUL noncompliance on CPAP, chronic hypoxia on 2L NC RTC, and resolved PE (no longer on anticoagulation) presents with progressive shortness of breath. She reports adherence to diuretics but has previously discontinued other cardiac medications. She has not seen a manual winder in approximately a year after switching providers and missing a scheduled appointment. On ED presentation, she was found to have cardiomegaly on CXR, elevated BNP (521), and mildly elevated troponins trending down (212 ? 195 ? 188). EKG showed sinus tachycardia (HR 104) with LVH but no acute ST-T changes. She denies active chest pain or palpitations. 07/25: Patient's position consistent with pneumonia. Continuing antibiotics ceftriaxone azithromycin. COPD unlikely but possible, looks euvolemic does not lead to leave exacerbation. We will decrease dose for Lasix. Continue steroids and antibiotics. Patient needs to continue with PCP to get referral for manual winder, she got fallen off from follow up from prior manual winder. She has HFrEF. Assessment and Plan: #Possible community-acquired pneumonia gram Positive, Atypical: Continue IV antibiotics, azithromycin and ceftriaxone, check MRSA , check for QT see, if prolonged change to doxycycline. #Possible COPD exacerbation: treatment in progress, likely underlying CAP, methylprednisolone IV changed to oral prednisone 40 mg daily x 5 more days. #Known COPD: at home formoterol and ipratropium bromide with albuterol rescue inhaler, in hospital treatment to continue #Acute on chronic CHF: iv lasix to continue for one more day, CHF bundle. #Known HFrEF, (25% EF): New echo LVEF 20%, Home GDM T spironolactone 25 mg daily, and oral Lasix 40 mg daily compliance questionable, hypothyroidism ruled out moderately elevated 521 of BNP , patient might get a benefits from AICD versus LifeVest. continue iv lasix 40 daily for now. check Mg, ivabradine added. 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 likely due to underlying stress due to hypotension: With known underlying CAD, continue telemetry, aspirin atorvastatin to continue. previous manual winder Dr. Kenney #Ischemic cardiomyopathy with known HFrEF 20-25% ejection fraction: NYHA III oxygen dependent, given lower blood pressure, less room for GDMT> #Mild Hypotensive: MAP to keep over 65, 98/62 this morning, patient asymptomatic, UA unremarkable, CXR unremarkable for CRP, check lactate, trend if high-risk for cardiogenic shock , close follow up with the Cardiology, underlying infection could be contributing. #Acute on Chronic hypoxic respiratory failure: back to 2 L nasal cannula oxygen, baseline, At home patient has oxygen concentrated, round the clock 2 L of nasal cannula oxygen, target SpO2 around 92% given known COPD case. Wean oxygen as tolerated, ruled out COVID influenza. #Normocytic anemia, H&H stable: am labs 11.8, Check for iron panel: if ferritin less than 100, IV iron infusion we will helping HFrEF as per IRONMAN trial. #Well-controlled diabetic, HbA1c 6.7: target blood glucose in-hospital 140-180 with SSI #Dyslipidemia: with TG 128, cholesterol 280, LDL 196, continue atorvastatin 40 mg daily #Cardiomegaly likely LVH due to prior hypertensive heart disease: LVH with IVCD and secondary repolarization abnormality #Moderate-sized hiatal hernia, GERD: Noted previously in EGD, continue Protonix, patient has symptoms, lifestyle modification, outpatient follow up with the GI as needed. #Previous surgical history of hysterectomy, healthy scars noted: abdomen examination unremarkable. #Constipation: as needed docusate. #Prior history of smoking, 20+ pack-year smoking history #Prior history of DVT/PE: presented with tachycardia hypoxia, renal function acceptable, completed previous anticoagulation. clinically #Chronic back pain, Muscle spasms: well controlled and ambulatory at baseline. continue home medications. #Likely CKD stage 2: Avoid nephrotoxins, gentle oral hydration, daily BNP #Obesity grade 1: BMI 31.5, high-risk for progression of HFpEF, weight loss counseling done. #Known history of VIPUL: patient did not tolerate home CPAP, Continue CPAP at night if tolerated. #Poor medication compliance /poor medical adherence #Borderline Prolonged QTC ~480: MG> 2, K>2, telemetry, changed azithromycin to doxycycline, avoid other QTC prolonging drugs. #Grade 1 obesity BMI 31.5 Tele Full code Plan discussed with: Patient Date of Service: Jul 25, 2025 Billing Provider: TARIQ REYES MD Common Visit Codes: [id number] INP/OBS CARE(HIGH) TARIQ REYES MD Jul 25, 2025 17:59
[2025-07-26] VITALS (9 sets, daily range): BP systolic 101–129; BP diastolic 65–81; PULSE 76–94; RESP 17–18; TEMP 97.6–98.9; O2SAT 92–98
[2025-07-26 08:28] LABS: Hematocrit 38.7 % (36.0-46.0); Hemoglobin 12.5 g/dL (12.2-16.2); Mean Corpuscular Hemoglobin 26.8 pg (28.0-32.0); Mean Corpuscular Volume 82.6 fL (80.0-100.0); Nucleated Red Blood Cells % 0.1 %
[2025-07-26 08:55] LABS: Alkaline Phosphatase 64 U/L (46-116); Anion Gap 13 (5-15); Calcium 9.6 mg/dL (8.7-10.4); Carbon Dioxide 29 mmol/L (20-31); Chloride 102 mmol/L (98-107); Potassium 3.5 mmol/L (3.5-5.1); Sodium 144 mmol/L (136-145)
[2025-07-26 08:57] LABS: BUN/Creatinine Ratio 16.8 (10.0-20.0); Blood Urea Nitrogen 16 mg/dL (9-23); Total Protein 7.4 g/dL (5.7-8.2)
[2025-07-26 08:58] LABS: Albumin 4.5 g/dL (3.2-4.8)
[2025-07-26 08:59] LABS: Bilirubin, Total 0.7 mg/dL (0.2-1.0)
[2025-07-26 09:00] LABS: Alanine Aminotransferase < 9 U/L (7-40); Glucose 114 mg/dL (74-106)
--- NOTE | 2025-07-26 10:06 | DVHPN2 ---
Reviewed: H&P Changes from previous H/P or p: No Changes General: Per HPI Eyes: No Pain, No Vision change, No Conjunctivae inflammation, No Eyelid inflammation, No Other, No Redness ENT: No Ear pain, No Ear discharge, No Nose pain, No Nose discharge, No Nose congestion, No Mouth pain, No Mouth swelling, No Throat pain, No Throat swelling, No Other Cardiovascular: No Chest Pain, No Palpitations, No Orthopnea, No Paroxysmal Noc. Dyspnea, No Edema, No Lt Headedness, No Other Respiratory: Cough; No Dry; Shortness of breath, SOB with excertion, Wheezing; No Hemoptysis, No Pleuritic Pain; Sputum; No Other Gastrointestinal: No Nausea, No Vomiting, No Abdominal Pain, No Diarrhea, No Constipation, No Melena, No Hematochezia, No Other Genitourinary: No Dysuria, No Frequency, No Incontinence, No Hematuria, No Retention, No Other Musculoskeletal: No other, No neck pain, No shoulder pain, No arm pain, No back pain, No hand pain, No leg pain, No foot pain Skin: No Rash, No Lesions, No Jaundice, No Bruising, No Other Objective Vitals Vital Signs Date Time Temp Pulse Resp B/P (MAP) Pulse Ox O2 Delivery O2 Flow Rate FiO2 07/26/25 05:00 97.7 76 17 105/66 (79) 95 97.7 07/25/25 20:00 Nasal Cannula* 2 28 Intake/Output Intake and Output 07/26/25 07:00 Intake Total 1585 ml Balance 1585 ml Intake Oral 1225 ml IV Total 360 ml # Voids 4 Exam GENERAL:Normal, HEENT:Normal (jvp elevated. ), NECK:Normal, LUNGS:Abnormal (b/l crackles, rales +ve 2L nc ), CVS:Abnormal (jvp elevated. no significant pitting edema noted. b/l legs), ABDOMEN:Normal, MSK:Normal, SKIN:Normal, NEURO:Normal Medications Current Medications Medications Dose Ordered Sig/Jess Route Start Time Stop Time Status Last Admin Dose Admin Acetaminophen/ Hydrocodone Bitart 1 tab Q4HP PRN PO 07/23/25 11:00 07/25/25 18:30 1 TAB Ondansetron HCl 4 mg Q4HP PRN IV 07/23/25 11:00 Docusate Sodium 100 mg BIDPRN PRN PO 07/23/25 11:00 07/24/25 16:17 100 MG Acetaminophen 650 mg Q6HP PRN PO 07/23/25 11:00 Nitroglycerin 0.4 mg Q5MINP PRN SL 07/23/25 11:00 Morphine Sulfate 2 mg Q30M PRN IV 07/23/25 11:00 Aspirin 81 mg DAILY PO 07/24/25 10:00 07/25/25 09:22 81 MG Carisoprodol 350 mg TID PRN PO 07/23/25 12:00 07/23/25 17:26 350 MG Atorvastatin Calcium 40 mg HS PO 07/23/25 22:00 07/24/25 21:04 40 MG Ceftriaxone Sodium 50 ml @ 100 mls/hr DAILY@09 IV 07/24/25 09:00 07/25/25 09:19 100 MLS/HR Enoxaparin Sodium 40 mg DAILY SC 07/25/25 10:00 07/25/25 09:22 40 MG Pantoprazole Sodium 40 mg DAILY IV 07/25/25 10:00 07/25/25 09:19 40 MG Ivabradine 2.5 mg BID PO 07/24/25 22:00 07/25/25 09:23 2.5 MG Doxycycline Hyclate 100 ml @ 50 mls/hr Q12H IV 07/24/25 16:15 07/26/25 04:28 50 MLS/HR Iron Sucrose 110 ml @ 110 mls/hr DAILY@1200 IV 07/24/25 16:45 07/28/25 12:59 07/25/25 12:12 110 MLS/HR Prednisone 40 mg DAILY PO 07/25/25 10:00 07/25/25 09:22 40 MG Furosemide 20 mg DAILY IV 07/26/25 10:00 Laboratory Results Laboratory Tests 07/26/25 08:07 Chemistry Test 07/25/25 12:05 07/26/25 08:07 Magnesium Level 1.9 mg/dL (1.6-2.6) Albumin 4.5 g/dL (3.2-4.8) Calcium Level 9.6 mg/dL (8.7-10.4) Total Protein 7.4 g/dL (5.7-8.2) LFT Test 07/26/25 08:07 Alanine Aminotransferase (ALT) < 9 U/L (7-40) Alkaline Phosphatase 64 U/L (46-116) Aspartate Amino Transferase (AST) 13 U/L (13-40) Total Bilirubin 0.7 mg/dL (0.2-1.0) Urinalysis Test 07/24/25 11:30 Urine Color Colorless (Yellow) Urine Clarity Clear (Clear) Urine pH 5.0 (5.0-9.0) Urine Specific [place] 1.006 (1.001-1.035) Urine Protein Negative (Negative) Urine Ketones Negative (Negative) Urine Blood Negative /uL (Negative) Urine Nitrite Negative (Negative) Urine Bilirubin Negative (Negative) Urine Urobilinogen Normal mg/dL (Negative) Urine Leukocyte Esterase Negative /uL (Negative) Urine RBC None seen /hpf (0 - 4) Urine Microscopic WBC /HPF (0-5) Urine Squamous Epithelial Cells Few /hpf (<5) Urine Bacteria None seen /hpf (None Seen) Urine Glucose 3+ mg/dL (Normal) H Microbiology Microbiology Date/Time Source Procedure Growth Status 07/24/25 11:30 Nose MRSA Screen - Final Complete Labs and/or images reviewed: Labs reviewed by me, Image(s) reviewed by me Assessment/Plan Assessment/Plan Ms. Friend, a 65-year-old female with a complex cardiac history including prior smoking, COPD, HFrEF, ischemic cardiomyopathy, CAD (2021 coronary angiogram showing chronic total occlusion of mid RCA and mild LCX disease), prior CA, CVA, VIPUL noncompliance on CPAP, chronic hypoxia on 2L NC RTC, and resolved PE (no longer on anticoagulation) presents with progressive shortness of breath. She reports adherence to diuretics but has previously discontinued other cardiac medications. She has not seen a scrap stripper hand in approximately a year after switching providers and missing a scheduled appointment. On ED presentation, she was found to have cardiomegaly on CXR, elevated BNP (521), and mildly elevated troponins trending down (212 ? 195 ? 188). EKG showed sinus tachycardia (HR 104) with LVH but no acute ST-T changes. She denies active chest pain or palpitations. 07/25: Patient's position consistent with pneumonia. Continuing antibiotics ceftriaxone azithromycin. COPD unlikely but possible, looks euvolemic does not lead to leave exacerbation. We will decrease dose for Lasix. Continue steroids and antibiotics. Patient needs to continue with PCP to get referral for scrap stripper hand, she got fallen off from follow up from prior scrap stripper hand. She has HFrEF. 07/26: Patient keeps insisting that she has blood clots in the lung, no sign for tachycardia or hypoxemia. We will get D-dimer and check lower extremity ultrasound to relief patient's concerns. Continue IV antibiotics for 1 more day for pneumonia. Patient has HFrEF, only on beta-zulema at home with statin, noncompliance is a high concern. She needs to follow up with PCP to set up GDM T appropriately. And needs to follow up with scrap stripper hand. Patient looks euvolemic I have decreased Lasix to 20 IV daily. Assessment and Plan: #Possible community-acquired pneumonia gram Positive, Atypical: Continue IV antibiotics, azithromycin and ceftriaxone, check MRSA , check for QT see, if prolonged change to doxycycline. #Possible COPD exacerbation: treatment in progress, likely underlying CAP, methylprednisolone IV changed to oral prednisone 40 mg daily x 5 more days. #Known COPD: at home formoterol and ipratropium bromide with albuterol rescue inhaler, in hospital treatment to continue #Acute on chronic CHF: iv lasix to continue for one more day, CHF bundle. #Known HFrEF, (25% EF): New echo LVEF 20%, Home GDM T spironolactone 25 mg daily, and oral Lasix 40 mg daily compliance questionable, hypothyroidism ruled out moderately elevated 521 of BNP , patient might get a benefits from AICD versus LifeVest. continue iv lasix 40 daily for now. check Mg, ivabradine added. 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 likely due to underlying stress due to hypotension: With known underlying CAD, continue telemetry, aspirin atorvastatin to continue. previous scrap stripper hand Dr. Kenney #Ischemic cardiomyopathy with known HFrEF 20-25% ejection fraction: NYHA III oxygen dependent, given lower blood pressure, less room for GDMT> #Mild Hypotensive: MAP to keep over 65, 98/62 this morning, patient asymptomatic, UA unremarkable, CXR unremarkable for CRP, check lactate, trend if high-risk for cardiogenic shock , close follow up with the Cardiology, underlying infection could be contributing. #Acute on Chronic hypoxic respiratory failure: back to 2 L nasal cannula oxygen, baseline, At home patient has oxygen concentrated, round the clock 2 L of nasal cannula oxygen, target SpO2 around 92% given known COPD case. Wean oxygen as tolerated, ruled out COVID influenza. #Normocytic anemia, H&H stable: am labs 11.8, Check for iron panel: if ferritin less than 100, IV iron infusion we will helping HFrEF as per IRONMAN trial. #Well-controlled diabetic, HbA1c 6.7: target blood glucose in-hospital 140-180 with SSI #Dyslipidemia: with TG 128, cholesterol 280, LDL 196, continue atorvastatin 40 mg daily #Cardiomegaly likely LVH due to prior hypertensive heart disease: LVH with IVCD and secondary repolarization abnormality #Moderate-sized hiatal hernia, GERD: Noted previously in EGD, continue Protonix, patient has symptoms, lifestyle modification, outpatient follow up with the GI as needed. #Previous surgical history of hysterectomy, healthy scars noted: abdomen examination unremarkable. #Constipation: as needed docusate. #Prior history of smoking, 20+ pack-year smoking history #Prior history of DVT/PE: presented with tachycardia hypoxia, renal function acceptable, completed previous anticoagulation. clinically #Chronic back pain, Muscle spasms: well controlled and ambulatory at baseline. continue home medications. #Likely CKD stage 2: Avoid nephrotoxins, gentle oral hydration, daily BNP #Obesity grade 1: BMI 31.5, high-risk for progression of HFpEF, weight loss counseling done. #Known history of VIPUL: patient did not tolerate home CPAP, Continue CPAP at night if tolerated. #Poor medication compliance /poor medical adherence #Borderline Prolonged QTC ~480: MG> 2, K>2, telemetry, changed azithromycin to doxycycline, avoid other QTC prolonging drugs. #Grade 1 obesity BMI 31.5 Tele Full code Plan discussed with: Patient My Orders Orders - TARIQ REYES MD Procedure Category Date Status Time Furosemide Injection PHA 07/26/25 In Process (Lasix Injection) 10:00 Date of Service: Jul 26, 2025 Billing Provider: TARIQ REYES MD Common Visit Codes: [id number] INP/OBS CARE(HIGH) TARIQ REYES MD Jul 26, 2025 10:06
[2025-07-26] MEDS: FUROSEMIDE 40 MG/4 ML VIAL IV SCH (11:08)
--- NOTE | 2025-07-26 13:11 | DVH ---
Bilateral lower extremity venous duplex Clinical History: R/O DVT Comparison: None Technique: Duplex Doppler evaluation of the deep venous systems of both lower extremities from the common femoral veins to the popliteal veins including color Doppler and spectral/pulsed waveform analysis was performed. Findings: RIGHT SIDE: The common femoral vein demonstrates appropriate compressibility and waveform variability. There is compressibility/patency of the great saphenous vein at the proximal thigh. The femoral vein demonstrates appropriate compressibility and waveform variability. The deep femoral vein demonstrates appropriate compressibility and waveform variability. The popliteal vein demonstrates appropriate compressibility and waveform variability. There is normal compressibility at the tibioperoneal trunk. LEFT SIDE: The common femoral vein demonstrates appropriate compressibility and waveform variability. There is compressibility/patency of the great saphenous vein at the proximal thigh. The femoral vein demonstrates appropriate compressibility and waveform variability. The deep femoral vein demonstrates appropriate compressibility and waveform variability. The popliteal vein demonstrates appropriate compressibility and waveform variability. There is normal compressibility at the tibioperoneal trunk. Impression: No right or left femoropopliteal venous thrombosis.
--- NOTE | 2025-07-26 15:52 | DVHPN2 ---
Progress Note - Dictate Date Seen: Jul 26, 2025 Medical Necessity Reason Pt with a Central, PICC or Fol: No Subjective PT WITH ISCHEMIC CM EF <20% SPONTANEOUS CONTRAST SINCE IN LV ON 2 ED ECHO ANTI COAGULATE ELEVATED TROPONIN C/W SUBENDOCARDIAL INJURY SECONDARY TO HYPOPERFUSION LHC OCCLUDED RCA NO WITH ACUTE DECOMPENSATION OF HFrEF vital signs Vital Sign Date Time Temp Pulse Resp B/P (MAP) Pulse Ox O2 Delivery O2 Flow Rate FiO2 07/26/25 13:00 98.9 94 18 102/65 (77) 98 98.9 07/25/25 20:00 Nasal Cannula* 2 28 Total Intake and Output 07/25/25 07/25/25 07/26/25 15:00 23:00 07:00 Intake Total 160 ml 1050 ml 375 ml Balance 160 ml 1050 ml 375 ml medications Current Medications Medications Dose Ordered Sig/Jess Route Start Time Stop Time Status Last Admin Dose Admin Acetaminophen/ Hydrocodone Bitart 1 tab Q4HP PRN PO 07/23/25 11:00 07/25/25 18:30 1 TAB Ondansetron HCl 4 mg Q4HP PRN IV 07/23/25 11:00 Docusate Sodium 100 mg BIDPRN PRN PO 07/23/25 11:00 07/24/25 16:17 100 MG Acetaminophen 650 mg Q6HP PRN PO 07/23/25 11:00 Nitroglycerin 0.4 mg Q5MINP PRN SL 07/23/25 11:00 Morphine Sulfate 2 mg Q30M PRN IV 07/23/25 11:00 Aspirin 81 mg DAILY PO 07/24/25 10:00 07/26/25 11:09 81 MG Carisoprodol 350 mg TID PRN PO 07/23/25 12:00 07/23/25 17:26 350 MG Atorvastatin Calcium 40 mg HS PO 07/23/25 22:00 07/24/25 21:04 40 MG Ceftriaxone Sodium 50 ml @ 100 mls/hr DAILY@09 IV 07/24/25 09:00 07/26/25 11:07 100 MLS/HR Enoxaparin Sodium 40 mg DAILY SC 07/25/25 10:00 07/26/25 11:07 40 MG Pantoprazole Sodium 40 mg DAILY IV 07/25/25 10:00 07/26/25 11:07 40 MG Ivabradine 2.5 mg BID PO 07/24/25 22:00 07/26/25 11:20 2.5 MG Doxycycline Hyclate 100 ml @ 50 mls/hr Q12H IV 07/24/25 16:15 07/26/25 04:28 50 MLS/HR Iron Sucrose 110 ml @ 110 mls/hr DAILY@1200 IV 07/24/25 16:45 07/28/25 12:59 07/26/25 12:52 110 MLS/HR Prednisone 40 mg DAILY PO 07/25/25 10:00 07/26/25 11:09 40 MG Furosemide 20 mg DAILY IV 07/26/25 10:00 07/26/25 11:08 20 MG laboratory and microbiology Laboratory Tests 07/26/25 08:07 Test 07/26/25 08:07 Range/Units Serum Glucose 114 H 74-106 mg/dL Problem List SCHEMIC CM EF <20% SPONTANEOUS CONTRAST SINCE IN LV ON 2 ED ECHO ANTI COAGULATE ELEVATED TROPONIN C/W SUBENDOCARDIAL INJURY SECONDARY TO HYPOPERFUSION LHC OCCLUDED RCA NO WITH ACUTE DECOMPENSATION OF HFrEF Assessment/Plan DIURESIS CONSIDER CARDIOLITE STRESS OUTPT Plan discussed with: Patient LIANA MUNGUIA MD Jul 26, 2025 15:52
[2025-07-27 01:00] VITALS: BP 103/63; PULSE 89; RESP 18; TEMP 97.8; O2SAT 94
[2025-07-27 05:00] VITALS: BP 105/62; PULSE 81; RESP 18; TEMP 97.6; O2SAT 95
[2025-07-27 09:00] VITALS: BP 127/77; PULSE 82; RESP 18; TEMP 98.2; O2SAT 95
[2025-07-27 10:00] VITALS: O2SAT 95
[2025-07-27] MEDS ORDERED: DOXY100C79 PO (10:06)
--- NOTE | 2025-07-27 10:08 | DVHDS2 ---
Discharge Summary Date of Admission Jul 23, 2025 at 10:59 Date of Discharge: Jul 27, 2025 Labs/Diagnostic Data: Laboratory Results Test 07/26/25 10:45 07/26/25 08:07 07/25/25 12:05 07/24/25 11:51 D-Dimer, Quantitative 1.69 mg/L FEU (0.0-0.49) Lactic Acid Level 1.0 mmol/L (0.4-2.0) White Blood Count 6.5 10^3/uL (4.4-10.8) Red Blood Count 4.68 10^6/uL (4.0-5.20) Hemoglobin 12.5 g/dL (12.2-16.2) Hematocrit 38.7 % (36.0-46.0) Mean Corpuscular Volume 82.6 fL (80.0-100.0) Mean Corpuscular Hemoglobin 26.8 pg (28.0-32.0) Mean Corpuscular Hemoglobin Concent 32.4 g/dL (32.0-36.0) Red Cell Distribution Width 15.2 % (11.8-14.3) Platelet Count 233 10^3/uL (140-450) Mean Platelet Volume 9.4 fL (6.9-10.8) Neutrophils (%) (Auto) 75.5 % (37.0-80.0) Lymphocytes (%) (Auto) 20.1 % (10.0-50.0) Monocytes (%) (Auto) 3.9 % (0.0-12.0) Eosinophils (%) (Auto) 0.3 % (0.0-7.0) Basophils (%) (Auto) 0.2 % (0.0-2.0) Neutrophils # (Auto) 4.9 10 ^3/uL (1.6-8.6) Lymphocytes # (Auto) 1.3 10 ^3/uL (0.4-5.4) Monocytes # (Auto) 0.3 10 ^3/uL (0-1.3) Eosinophils # (Auto) 0 10 ^3/uL (0-0.8) Basophils # (Auto) 0 10 ^3/uL (0-0.2) Nucleated Red Blood Cells 0.1 % Sodium Level 144 mmol/L (136-145) Potassium Level 3.5 mmol/L (3.5-5.1) Chloride Level 102 mmol/L (98-107) Carbon Dioxide Level 29 mmol/L (20-31) Anion Gap 13 (5-15) Blood Urea Nitrogen 16 mg/dL (9-23) Creatinine 0.95 mg/dL (0.550-1.02) Glomerular Filtration Rate Calc 67 mL/min (>90) BUN/Creatinine Ratio 16.8 (10.0-20.0) Serum Glucose 114 mg/dL (74-106) Calcium Level 9.6 mg/dL (8.7-10.4) Total Bilirubin 0.7 mg/dL (0.2-1.0) Aspartate Amino Transferase (AST) 13 U/L (13-40) Alanine Aminotransferase (ALT) < 9 U/L (7-40) Alkaline Phosphatase 64 U/L (46-116) Total Protein 7.4 g/dL (5.7-8.2) Albumin 4.5 g/dL (3.2-4.8) Magnesium Level 1.9 mg/dL (1.6-2.6) Influenza Type A Antigen Negative (Negative) Influenza Type B Antigen Negative (Negative) SARS-CoV-2 Antigen (Rapid) Negative (NEGATIVE) Test 07/24/25 11:30 07/24/25 03:28 07/23/25 14:11 07/23/25 07:44 Urine Color Colorless (Yellow) Urine Clarity Clear (Clear) Urine pH 5.0 (5.0-9.0) Urine Specific [place] 1.006 (1.001-1.035) Urine Protein Negative (Negative) Urine Ketones Negative (Negative) Urine Blood Negative /uL (Negative) Urine Nitrite Negative (Negative) Urine Bilirubin Negative (Negative) Urine Urobilinogen Normal mg/dL (Negative) Urine Leukocyte Esterase Negative /uL (Negative) Urine RBC None seen /hpf (0 - 4) Urine Microscopic WBC /HPF (0-5) Urine Squamous Epithelial Cells Few /hpf (<5) Urine Bacteria None seen /hpf (None Seen) Urine Glucose 3+ mg/dL (Normal) Iron Level 35 ug/dL (50-170) Total Iron Binding Capacity 280 ug/dL (250-425) Percent Iron Saturation 12.5 % (15-50) Ferritin 83.1 ng/mL (10-291) Hemoglobin A1c 6.7 % A1C (<5.7) Troponin I High Sensitivity 188 ng/L (</=34) Triglycerides Level 128 mg/dL (< 150) Cholesterol Level 280 mg/dL (< 200) LDL Cholesterol 196 mg/dL (< 100) HDL Cholesterol 59 mg/dL (40-59) Thyroid Stimulating Hormone (TSH) 2.11 uIU/mL (0.55-4.78) Test 07/23/25 04:30 B-Type Natriuretic Peptide 521.49 pg/mL (0-100) Other Laboratory Tests 07/26/25 08:07 Brief Hx & Hospital Course: Ms. Friend, a 65-year-old female with a complex cardiac history including prior smoking, COPD, HFrEF, ischemic cardiomyopathy, CAD (2021 coronary angiogram showing chronic total occlusion of mid RCA and mild LCX disease), prior OH, CVA, VIPUL noncompliance on CPAP, chronic hypoxia on 2L NC RTC, and resolved PE (no longer on anticoagulation) presents with progressive shortness of breath. She reports adherence to diuretics but has previously discontinued other cardiac medications. She has not seen a sustainability specialist in approximately a year after switching providers and missing a scheduled appointment. On ED presentation, she was found to have cardiomegaly on CXR, elevated BNP (521), and mildly elevated troponins trending down (212 ? 195 ? 188). EKG showed sinus tachycardia (HR 104) with LVH but no acute ST-T changes. She denies active chest pain or palpitations. 07/25: Patient's position consistent with pneumonia. Continuing antibiotics ceftriaxone azithromycin. COPD unlikely but possible, looks euvolemic does not lead to leave exacerbation. We will decrease dose for Lasix. Continue steroids and antibiotics. Patient needs to continue with PCP to get referral for sustainability specialist, she got fallen off from follow up from prior sustainability specialist. She has HFrEF. 07/26: Patient keeps insisting that she has blood clots in the lung, no sign for tachycardia or hypoxemia. We will get D-dimer and check lower extremity ultrasound to relief patient's concerns. Continue IV antibiotics for 1 more day for pneumonia. Patient has HFrEF, only on beta-zulema at home with statin, noncompliance is a high concern. She needs to follow up with PCP to set up GDM T appropriately. And needs to follow up with sustainability specialist. Patient looks euvolemic I have decreased Lasix to 20 IV daily. 07/27: Patient doing well, off of oxygen. Pneumonias improving, can finish treatment of at home. Needs to try to avoid any allergy exposures, i.e. neighbors dogs fecal orders. Discharge diagnosis: Acute hypoxic respiratory failure due to below Community-acquired pneumonia Gram-negative Gram-positive likely COPD exacerbation, ruled out, chronic COPD CHF, not in exacerbation, systolic and diastolic dysfunction HFrEF 25% EF CAD with OH tolerance 17 Type 2 NSTEMI, due to above Ischemic cardiomyopathy Normocytic anemia Diabetic mellitus, type 2, we will controlled A1c 6.7 Dyslipidemia Cardiomegaly, LVH, likely hypertensive heart disease Moderate size hiatal hernia History previous surgical hysterectomy Chronic constipation History of smoking 20+ pack-year History of DVT/PE Chronic back pain CKD stage 2 Obesity grade 1 BMI 31.5 VIPUL, failed CPAP tolerance Poor medication compliance, medication noncompliance Prolonged QTC approximately 480 Plan: -Take doxycycline 100 mg twice daily for next 5 days -Lasix 40 mg as needed for leg swelling -Patient not on GDM T, unknown reasons/side effects, despite HFrEF diagnosis, close follow up with sustainability specialist/PCP to optimize the GDM T -Continue current home medications beta-zulema and Lipitor -Close follow up with PCP 1 week - -[facility] clinic 1 week Condition at Discharge: Fair Final Diagnosis/Problems List Acute hypoxic respiratory failure due to below Community-acquired pneumonia Gram-negative Gram-positive likely COPD exacerbation, ruled out, chronic COPD CHF, not in exacerbation, systolic and diastolic dysfunction HFrEF 25% EF CAD with OH tolerance 17 Type 2 NSTEMI, due to above Ischemic cardiomyopathy Normocytic anemia Diabetic mellitus, type 2, we will controlled A1c 6.7 Dyslipidemia Cardiomegaly, LVH, likely hypertensive heart disease Moderate size hiatal hernia History previous surgical hysterectomy Chronic constipation History of smoking 20+ pack-year History of DVT/PE Chronic back pain CKD stage 2 Obesity grade 1 BMI 31.5 VIPUL, failed CPAP tolerance Poor medication compliance, medication noncompliance Prolonged QTC approximately 480 Discharge Disposition: Home Discharge Instruct/Medications Scheduled Aspirin (Aspirin Low Dose), 1 TAB PO DAILY, (Reported) Atorvastatin Calcium (Atorvastatin Calcium), 40 MG PO HS, (Reported) Furosemide (Furosemide), 1 TAB PO DAILY, (Reported) Scheduled PRN Carisoprodol (Carisoprodol), 1 TAB PO TID PRN, (Reported) Discharge Statement: "Patient was advised to return to the ER or call 911 if any headaches, dizziness, shortness of breath, chest pain, abdominal pain, bleeding, fevers, or worsening of medical condition. Patient was counseled about treatment plan, medications, possible side effects, patientverbalized understanding. All questions were answered to the best of my ability. This discharge took greater then 30 minutes in planning, reviewing documentation, counseling the patient, and discussing with other team members." ASSESSMENT ASSESSMENT Assessment Date of Service: Jul 27, 2025 Billing Provider: TARIQ REYES MD Common Visit Codes: 26463-EYU/OBS DISCH DAY >30min TARIQ REYES MD Jul 27, 2025 10:08
[2025-07-27 11:09] VITALS: BP 127/77; PULSE 82; RESP 18; TEMP 98.2; O2SAT 95
[2025-07-27 12:52] VITALS: BP 105/45; PULSE 70; RESP 18; TEMP 97.3; O2SAT 98
== END 2025-07-27 15:51 | disposition home or self-care (01) | DRG 177 ==
LOC: ER 03:35 → EDBD 03:35 → OVERFLOW 10:59 → TELE-EAST 14:56 → EAST 07-27 05:10
PROVIDERS: ADMIT Student in an Organized Health Care Education/Training Program; ATTEND Student in an Organized Health Care Education/Training Program
DX: J15.69 Pneumonia due to other Gram-negative bacteria (principal); I21.A1 Myocardial infarction type 2; J96.21 Acute and chronic respiratory failure with hypoxia; J44.0 Chronic obstructive pulmonary disease with (acute) lower respiratory infection; I25.5 Ischemic cardiomyopathy; D64.9 Anemia, unspecified; E11.22 Type 2 diabetes mellitus with diabetic chronic kidney disease; J15.9 Unspecified bacterial pneumonia; I13.0 Hypertensive heart and chronic kidney disease with heart failure and stage 1 through stage 4 chronic kidney disease, or unspecified chronic kidney disease; E66.9 Obesity, unspecified; I50.42 Chronic combined systolic (congestive) and diastolic (congestive) heart failure; Z20.822 Contact with and (suspected) exposure to COVID-19; I25.10 Atherosclerotic heart disease of native coronary artery without angina pectoris; E78.5 Hyperlipidemia, unspecified; N18.2 Chronic kidney disease, stage 2 (mild); G47.33 Obstructive sleep apnea (adult) (pediatric); G89.29 Other chronic pain; K44.9 Diaphragmatic hernia without obstruction or gangrene; K21.9 Gastro-esophageal reflux disease without esophagitis; K59.09 Other constipation; M62.838 Other muscle spasm; Z68.31 Body mass index [BMI] 31.0-31.9, adult; Z88.0 Allergy status to penicillin; Z90.710 Acquired absence of both cervix and uterus; I25.2 Old myocardial infarction; Z86.711 Personal history of pulmonary embolism; Z82.3 Family history of stroke; Z88.2 Allergy status to sulfonamides; Z91.148 Patient's other noncompliance with medication regimen for other reason; Z79.01 Long term (current) use of anticoagulants; Z87.891 Personal history of nicotine dependence; Z86.73 Personal history of transient ischemic attack (TIA), and cerebral infarction without residual deficits; Z99.81 Dependence on supplemental oxygen; Z86.718 Personal history of other venous thrombosis and embolism; Z79.899 Other long term (current) drug therapy
CPT/HCPCS: 36415; 71045; 80053; 80061; 81001; 82728; 83036; 83540; 83550; 83605; 83735; 83880; 84443; 84484; 85025; 85379; 87040; 87081; 87426; 87804; 93005; 93306; 93970; 94640; 96374; 97163; 99291; G0378; J1756; J2470